=== PATIENT | male | born 1945 | race African-American/Black ===

== ENCOUNTER 2016-08-28 08:56 | Observation (INO) | payer MEDICARE ==
[~2016-08-28] VITALS: Ht 177.8 cm; Wt 84.0 kg
[~2016-08-28 08:56] MED LIST: ALLO100T PO; ATOR20TA42 PO; BACT800T5 PO; ETOD400T PO; LEVA500T PO; PRIN20TA2 PO; VITA20002 PO
[2016-08-28 09:00] VITALS: BP 162/81; PULSE 62; RESP 18; TEMP 98.2; O2SAT 99
[2016-08-28] MEDS ORDERED: ATOR20TA15 PO (09:10)
[2016-08-28] MEDS ORDERED: LISI-515 PO (09:10)
[2016-08-28] MEDS ORDERED: AMLO5TAB2 PO (09:10)
[2016-08-28] MEDS ORDERED: ALLO100T PO (09:10)
[2016-08-28] MEDS ORDERED: TAMS0.4C4 PO (09:10)
[2016-08-28 09:13] VITALS: O2SAT 98
[2016-08-28] MEDS ORDERED: SODIUM CHLORIDE 0.9% FLUSH 10 ML FLUSH IVF PRN (09:15)
[2016-08-28 09:17] VITALS: BP 158/80; PULSE 58
--- NOTE | 2016-08-28 09:21 | PD ---
HPI Chief Complaint: Chest Pain Time Seen by Provider: 09:03 Travel History International Travel<30 days: No Contact w/Intl Traveler<30days: No Traveled to known affect area: No History of Present Illness HPI 71-year-old man presents emergency department complaining of pressure-like chest pain on the right side of his chest intermittently for the past 3 days. His last about 30 minutes, 2-3 times per day, for the past 3-4 days. It happened someways cleaning his house but was not happening particularly with exertion. He has not noticed any clear aggravating or alleviating factors. Is not noticed any change with food. He otherwise had been feeling generally well and healthy. His a history of BPH, CAD, hypertension, hyperlipidemia. No history of heart problems. He went to his primary care doctor's office today for this chest pain and was sent to the emergency department. History Past Medical History Narrative Medical BPH Chronic kidney disease Hypertension hyperlipidemia Past Surgical History Surgical History: No Previous Surgery Social History Alcohol Use: Yes (SOCIALLY) Tobacco Use: No Allergies-Medications (Allergen,Severity, Reaction): Coded Allergies: No Known Allergies (Verified , 08/28/16) Reported Meds & Prescriptions Reported Meds & Active Scripts Active Reported Tamsulosin (Tamsulosin HCl) 0.4 Mg Cap 0.4 Mg PO HS Atorvastatin (Atorvastatin Calcium) 20 Mg Tab 20 Mg PO HS Amlodipine (Amlodipine Besylate) 5 Mg Tab 5 Mg PO DAILY Allopurinol 100 Mg Tab 100 Mg PO BID Lisinopril 20 Mg Tab 20 Mg PO DAILY Review of Systems Except as stated in HPI: all other systems reviewed are Neg Physical Exam Narrative GENERAL: Well-appearing 71-year-old man, no acute distress. SKIN: Focused skin assessment warm/dry. HEAD: Atraumatic. Normocephalic. EYES: Pupils equal and round. No scleral icterus. No injection or drainage. ENT: No nasal bleeding or discharge. Mucous membranes pink and moist. NECK: Trachea midline. No JVD. CARDIOVASCULAR: Regular rate and rhythm. No murmur appreciated. Peripheral pulses symmetric and equal. RESPIRATORY: No accessory muscle use. Clear to auscultation. Breath sounds equal bilaterally. GASTROINTESTINAL: Abdomen soft, non-tender, nondistended. Hepatic and splenic margins not palpable. MUSCULOSKELETAL: No obvious deformities. No clubbing. No cyanosis. No edema. NEUROLOGICAL: Awake and alert. No obvious cranial nerve deficits. Motor grossly within normal limits. Normal speech. PSYCHIATRIC: Appropriate mood and affect; insight and judgment normal. Data Data Last Documented VS Vital Signs Date Time Temp Pulse Resp B/P Pulse Ox O2 Delivery O2 Flow Rate FiO2 08/28/16 09:17 58 158/80 08/28/16 09:13 98 Nasal Cannula 2 08/28/16 09:10 18 08/28/16 09:00 98.2 Orders Electrocardiogram (08/28/16 ) Complete Blood Count With Diff (08/28/16 09:10) Comprehensive Metabolic Panel (08/28/16 09:10) Magnesium (Mg) (08/28/16 09:10) Prothrombin Time / Inr (Pt) (08/28/16 09:10) Act Partial Throm Time (Ptt) (08/28/16 09:10) Troponin I (08/28/16 09:10) Chest, Single Ap (08/28/16 09:10) Ecg Monitoring (08/28/16 09:10) Bilateral Bp Monitoring (08/28/16 09:10) Iv Access Insert/Monitor (08/28/16 09:10) Oximetry (08/28/16 09:10) Oxygen Administration (08/28/16 09:10) Sodium Chloride 0.9% Flush (Ns Flush) (08/28/16 09:15) Nitroglycerin 2% Oint (Nitroglycerin 2% (08/28/16 09:30) Labs Laboratory Tests Test 08/28/16 09:15 White Blood Count 6.2 TH/MM3 Red Blood Count 4.18 MIL/MM3 Hemoglobin 13.8 GM/DL Hematocrit 40.3 % Mean Corpuscular Volume 96.3 FL Mean Corpuscular Hemoglobin 32.9 PG Mean Corpuscular Hemoglobin 34.2 % Concent Red Cell Distribution Width 14.2 % Platelet Count 209 TH/MM3 Mean Platelet Volume 7.7 FL Neutrophils (%) (Auto) 54.6 % Lymphocytes (%) (Auto) 34.3 % Monocytes (%) (Auto) 6.5 % Eosinophils (%) (Auto) 4.0 % Basophils (%) (Auto) 0.6 % Neutrophils # (Auto) 3.4 TH/MM3 Lymphocytes # (Auto) 2.1 TH/MM3 Monocytes # (Auto) 0.4 TH/MM3 Eosinophils # (Auto) 0.2 TH/MM3 Basophils # (Auto) 0.0 TH/MM3 CBC Comment DIFF FINAL Differential Comment Prothrombin Time 11.5 SEC Prothromb Time International 1.0 RATIO Ratio Activated Partial 27.0 SEC Thromboplast Time Sodium Level 141 MEQ/L Potassium Level 4.1 MEQ/L Chloride Level 107 MEQ/L Carbon Dioxide Level 26.9 MEQ/L Anion Gap 7 MEQ/L Blood Urea Nitrogen 20 MG/DL Creatinine 1.79 MG/DL Estimat Glomerular Filtration 45 ML/MIN Rate Random Glucose 102 MG/DL Calcium Level 8.9 MG/DL Magnesium Level 2.2 MG/DL Total Bilirubin 0.6 MG/DL Aspartate Amino Transf 33 U/L (AST/SGOT) Alanine Aminotransferase 46 U/L (ALT/SGPT) Alkaline Phosphatase 55 U/L Troponin I LESS THAN 0.02 NG/ML Total Protein 7.5 GM/DL Albumin 3.6 GM/DL [facility] Medical Decision Making Medical Screen Exam Complete: Yes Emergency Medical Condition: Yes Interpretation(s) My review of EKG: Normal sinus rhythm at a rate of 63, leftward axis, possible LVH, no definite evidence of acute ischemia. LABS: CBC unremarkable CMP unremarkable, mildly elevated BUN and creatinine Troponin negative Coags unremarkable Chest x-ray: No acute disease. Differential Diagnosis ACS, hepatobiliary disease, PE, dissection, chest wall pain, other Narrative Course Medical decision making 71-year-old man presents to the emergency department with pressure-like intermittent chest pain on the right eye concerning for myocardial ischemia. Initial EKG is not diagnostic. We'll check an initial set a labs, x-ray, likely admission to chest pain Center. Diagnosis Primary Impression: Chest pain Geoffrey Dye MD Aug 28, 2016 09:20
[2016-08-28] MEDS ORDERED: NITROGLYCERIN 2% OINT 1 GM PACKET TOPICAL ONE (09:30)
[2016-08-28 09:49] LABS: AUTOMATED NEUTROPHIL # 3.4 TH/MM3 (1.8-7.7); BASOPHIL % 0.6 % (0.0-2.0); EOSINOPHIL # 0.2 TH/MM3 (0-0.4); HEMATOCRIT 40.3 % (39.0-51.0); HEMO FLAGS DIFF FINAL; LYMPH % 34.3 % (9.0-44.0); LYMPHOCYTE # 2.1 TH/MM3 (1.0-4.8); MEAN CELL VOLUME 96.3 FL (80.0-100.0); MEAN CORPUSCULAR HEMOGLOBIN 32.9 PG (27.0-34.0); MEAN CORPUSCULAR HGB CONC 34.2 % (32.0-36.0); MONO % 6.5 % (0.0-8.0); NEUT % 54.6 % (16.0-70.0); PLATELET COUNT 209 TH/MM3 (150-450); RED BLOOD COUNT 4.18 MIL/MM3 (4.50-5.90); RED CELL DISTRIBUTION WIDTH 14.2 % (11.6-17.2); WHITE BLOOD COUNT 6.2 TH/MM3 (4.0-11.0)
[2016-08-28 09:58] LABS: PROTHROMBIN TIME - PATIENT 11.5 SEC (9.8-11.6)
[2016-08-28 10:13] LABS: ANION GAP 7 MEQ/L (5-15); AST (GOT) 33 U/L (15-37); BICARBONATE 26.9 MEQ/L (21.0-32.0); BLOOD UREA NITROGEN 20 MG/DL (7-18); CHLORIDE 107 MEQ/L (98-107); GLOMERULAR FILTRATION RATE 45 ML/MIN (>89); MAGNESIUM 2.2 MG/DL (1.5-2.5); POTASSIUM 4.1 MEQ/L (3.5-5.1); SODIUM (NA) 141 MEQ/L (136-145)
[2016-08-28 10:18] LABS: ALKALINE PHOSPHATASE 55 U/L (45-117); ALT (GPT) 46 U/L (12-78); TOTAL BILIRUBIN ADULT 0.6 MG/DL (0.2-1.0)
--- NOTE | 2016-08-28 10:26 | RADRPT ---
EXAM DATE/TIME: 08/28/2016 09:21 [facility] COMPARISON: No previous studies available for comparison. INDICATIONS : Chest pain. MEDICAL HISTORY : Hypertension. SURGICAL HISTORY : None. ENCOUNTER: Initial ACUITY: 3 days PAIN SCORE: 8/10 LOCATION: Right chest FINDINGS: A single view of the chest demonstrates the lungs to be symmetrically aerated without evidence of mas s, infiltrate or effusion. The cardiomediastinal contours are unremarkable. Osseous structures are intact. CONCLUSION: No acute disease. Casimiro Weber MD on August 28, 2016 at 10:24 Board Certified Radiologist. This report was verified electronically.
[2016-08-28 11:01] VITALS: BP 132/76; PULSE 56; RESP 18; O2SAT 98
[2016-08-28] MEDS ORDERED: NITROGLYCERIN 0.4 MG SL 25 TABS/BTL SL PRN (11:15)
[2016-08-28] MEDS ORDERED: ACETAMINOPHEN 500 MG CPLT PO PRN (11:15)
[2016-08-28] MEDS ORDERED: ONDANSETRON HCL 4 MG/2 ML VIAL IV PRN (11:15)
[2016-08-28] MEDS ORDERED: SODIUM CHLORIDE 0.9% FLUSH 10 ML FLUSH IV FLUSH PRN (11:15)
--- NOTE | 2016-08-28 11:52 | HHI.HP ---
HPI Primary Care Physician Marvin Clark Chief Complaint Chest pain History of Present Illness 71-year-old male with known hypertension and hyperlipidemia presents to the emergency room for further evaluation of chest discomfort. 4 days of right anterior intermittent chest discomfort. Characterized as a "pins." No radiation. First episode occurred on Saturday when he was cleaning his house. Duration approximately 3 hours. No associated symptoms. No known precipitating or relieving factors. Saturday he was exercising and felt the discomfort "most of the day" again without radiation or associated symptoms. In fact, he said exercise improved his symptoms of pain. Saturday he still was experiencing chest discomfort and scheduled an appointment for Saturday. Today when seen by his PCP an EKG was completed and he was sent via EMS for further evaluation. He denies any past episodes of chest pain in the past. No history of coronary artery disease. Review of Systems General: No fatigue,weakness, fever, chills, or recent illness. Has been in his general state of health without complaints. In fact, he walks 5 miles daily without any chest discomfort. HEENT: No SANCHEZ, no vision changes, no nasal congestion or drainage, no dysphasia CV: As stated above. No current chest pain. No chest pressure, palpitations, intermittent leg pain. Episode of dizziness Saturday during first chest pain episode and during Saturday's episode. RESP: No SOB, cough, wheeze, or recent URI. GI: No nausea, vomiting, bowel changes, diarrhea, constipation, pain, distention , melena, blood in the stool. No change in appetite, no unintentional weight gain or weight loss. : No dysuria, urgency, frequency, endorses BPH taking Flomax as prescribed. EXT: No lower leg edema, no paraesthesias MS: No discomfort, known trauma to area, change in ROM. Has not increased his activity or amount weights during exercise. NEURO: No change in memory, dizziness, difficulty with balance, LOC, motor/ sensory deficits PSYCH: No anxiety or depression SKIN: No rashes, no concerning lesions Past Family Social History Allergies: Coded Allergies: No Known Allergies (Verified , 08/28/16) Past Medical History BPH, hypertension, hyperlipidemia, chronic kidney disease Past Surgical History Right index finger amputation, ankle fracture in his 50s Reported Medications Reported Meds & Active Scripts Active Reported Tamsulosin (Tamsulosin HCl) 0.4 Mg Cap 0.4 Mg PO HS Atorvastatin (Atorvastatin Calcium) 20 Mg Tab 20 Mg PO HS Amlodipine (Amlodipine Besylate) 5 Mg Tab 5 Mg PO DAILY Allopurinol 100 Mg Tab 100 Mg PO BID Lisinopril 20 Mg Tab 20 Mg PO DAILY Active Ordered Medications Current Medications Medications (Trade) Dose Ordered Sig/Ericka Route Start Time Stop Time Status Last Admin (NS Flush) 2 ml UNSCH PRN IVF 08/28/16 09:15 (NS Flush) 2 ml UNSCH PRN IV FLUSH 08/28/16 11:15 (NS Flush) 2 ml BID IV FLUSH 08/28/16 21:00 (Tylenol) 500 mg Q4H PRN PO 08/28/16 11:15 (Zofran Inj) 4 mg Q6H PRN IV 08/28/16 11:15 (Nitrostat Sl) 0.4 mg Q5M PRN SL 08/28/16 11:15 (Aspirin) 325 mg DAILY PO 08/29/16 09:00 Family History Noncontributory for any early onset cardiovascular disease in parent's. One sibling (brother) cardiac stent placed in his 50s. Sister coronary artery disease in her 80s. Other siblings without early onset cardiovascular disease. Social History Known hypertension and hyperlipidemia-on medication. No known diabetes. Remote smoker, smokes in his early 20s for a couple of years. Endorses glass of red wine in evening. Denies any illegal drug use. Activewalks 5 miles daily, performs situps, pushups, and using dumbbells daily. Past cardiac testing Exercise stress test "many years ago while living in [place]." Never required a cardiac catheterization. Physical Exam Vital Signs Vital Signs Date Time Temp Pulse Resp B/P Pulse Ox O2 Delivery O2 Flow Rate FiO2 08/28/16 11:01 56 18 132/76 98 Nasal Cannula 2 08/28/16 09:17 58 158/80 08/28/16 09:13 98 Nasal Cannula 2 08/28/16 09:13 97 08/28/16 09:10 58 18 98 Room Air 08/28/16 09:00 98.2 62 18 162/81 99 Physical Exam GENERAL: Alert WN, WD, NAD, pleasant, Shanel male who appears younger than stated age HEAD: NC, AT EYES: Sclera clear, conjunctiva without injection, pupils equal and round ENT: Mucous membranes pink and moist NECK: Supple, no masses, trachea midline CV: RRR, without murmur, rub, gallop, no JVD, S1-S2 no S3-S4. No carotid bruits. Chest discomfort not reproducible with palpation. RESP: Clear lungs throughout bilateral, no crackles, wheeze, rhonchi, symmetrical chest rise, nonlabored, able to speak in full sentences ABD: Soft, NT, ND, no masses, positive bowel tones EXT: Pulses +24, no dependent edema MS: Normal tone 4 extremities, nontender, no obvious deformities, full range of motion NEURO: CN II through CN XII grossly intact, motor strength 5/5, gait WNL PSYCH: A+O 3, pleasant affect, appropriate speech, appropriate mood and affect , insight and judgment SKIN: Normal turgor, normal texture, no lesions, no rashes, brisk cap refill, even hair distribution Laboratory Laboratory Tests Test 08/28/16 09:15 White Blood Count 6.2 Red Blood Count 4.18 Hemoglobin 13.8 Hematocrit 40.3 Mean Corpuscular Volume 96.3 Mean Corpuscular Hemoglobin 32.9 Mean Corpuscular Hemoglobin 34.2 Concent Red Cell Distribution Width 14.2 Platelet Count 209 Mean Platelet Volume 7.7 Neutrophils (%) (Auto) 54.6 Lymphocytes (%) (Auto) 34.3 Monocytes (%) (Auto) 6.5 Eosinophils (%) (Auto) 4.0 Basophils (%) (Auto) 0.6 Neutrophils # (Auto) 3.4 Lymphocytes # (Auto) 2.1 Monocytes # (Auto) 0.4 Eosinophils # (Auto) 0.2 Basophils # (Auto) 0.0 CBC Comment DIFF FINAL Differential Comment Prothrombin Time 11.5 Prothromb Time International 1.0 Ratio Activated Partial 27.0 Thromboplast Time Sodium Level 141 Potassium Level 4.1 Chloride Level 107 Carbon Dioxide Level 26.9 Anion Gap 7 Blood Urea Nitrogen 20 Creatinine 1.79 Estimat Glomerular Filtration 45 Rate Random Glucose 102 Calcium Level 8.9 Magnesium Level 2.2 Total Bilirubin 0.6 Aspartate Amino Transf 33 (AST/SGOT) Alanine Aminotransferase 46 (ALT/SGPT) Alkaline Phosphatase 55 Troponin I LESS THAN 0.02 Total Protein 7.5 Albumin 3.6 Result Diagram: 08/28/1691408/28/1615 Imaging Last Impressions Chest X-Ray 08/28/16 0910 Signed Impressions: Service Date/Time: Sunday, August 28, 2016 09:21 - CONCLUSION: No acute disease. Casimiro Weber MD Course EKG First EKG normal sinus rhythm, no ST or T-segment changes, and the left axis deviation Assessment and Plan Assessment and Plan #1 Chest painadmitted to chest pain center. Seen and evaluated by Dr. Veronica Winkler. Will complete 2 sets of EKGs and cardiac enzymes. After being ruled out with 2 sets of cardiac enzymes, will complete an exercise stress test. Patient is agreeable to this plan of care. Atypical chest pain most likely musculoskeletal. Will discharge later this afternoon if exercise stress test unremarkable. #2 Hypertensioncontinue lisinopril #3 Hyperlipidemiacontinue atorvastatin #4 CKDfollow with primary physician and to probably just as previously instructed #5 BPHcontinue tamsulosin Ashley Whitfield Aug 28, 2016 11:52
[2016-08-28 13:19] LABS: CREATINE KINASE 690 U/L (39-308)
[2016-08-28 13:26] VITALS: O2SAT 96
[2016-08-28 13:30] LABS: CKMB 4.5 NG/ML (0.5-3.6)
[2016-08-28 14:03] VITALS: PULSE 56
--- NOTE | 2016-08-28 14:39 | EKG ---
Date Performed: 08/28/2016 Time Performed: 09:04:15 PTAGE: 71 years EKG: Sinus rhythm MINIMAL VOLTAGE CRITERIA FOR LVH, CONSIDER NORMAL VARIANT BORDERLINE ECG NO SIGNIFICANT CHANGE FROM PRIOR ELECTROCARDIOGRAM. PREVIOUS TRACING : 11/23/2013 11.48 DOCTOR: Trace Porter Interpretating Date/Time 08/28/2016 14:38:16
--- NOTE | 2016-08-28 14:54 | HHI.DCPOC ---
Discharge Care Plan Diagnosis: (1) Atypical chest pain Goals to Promote Your Health * To prevent worsening of your condition and complications * To maintain your health at the optimal level Directions to Meet Your Goals Take your medications as prescribed Follow your dietary instruction Follow activity as directed Keep your appointments as scheduled Take your immunizations and boosters as scheduled If your symptoms worsen call your PCP, if no PCP go to Urgent Care Center or Emergency Room Smoking is Dangerous to Your Health. Avoid second hand smoke Call the 24-hour hour crisis hotline for domestic abuse at Ashley Whitfield Aug 28, 2016 14:53
--- NOTE | 2016-08-28 17:37 | TR ---
Date Performed: 08/28/2016 Time Performed: 14:15:30 DOCTOR: Veronica Winkler DRUG LIST: CLINICAL HISTORY: REASON FOR TEST: Chest pain REASON FOR ENDING: OBSERVATION: CONCLUSION: Williams protocol completed. Stopped sec to exceeding target heart rate and leg fatigue . Maximum GE=687 Target HR Achieved=90.0% Maximum IJ=969/100 Total Exercise Time=6:01. No reprod ches t discomfort. Rare PVC during recovery. No st t segments changes to sugg ischemia. Hypertensive bp re sponse. Recovery quick and unremarkable. COMMENTS:
[2016-08-28] MEDS ORDERED: TAMSULOSIN HCL 0.4 MG CAP PO SCH (21:00)
[2016-08-28] MEDS ORDERED: ATORVASTATIN 20 MG TAB PO SCH (21:00)
[2016-08-28] MEDS ORDERED: ALLOPURINOL 100 MG TAB PO SCH (21:00)
[2016-08-28] MEDS ORDERED: SODIUM CHLORIDE 0.9% FLUSH 10 ML FLUSH IV FLUSH SCH (21:00)
[2016-08-29] MEDS ORDERED: amLODIPine BESYLATE 5 MG TAB PO SCH (09:00)
[2016-08-29] MEDS ORDERED: LISINOPRIL 20 MG TAB PO SCH (09:00)
[2016-08-29] MEDS ORDERED: ASPIRIN 325 MG TAB PO SCH (09:00)
--- NOTE | 2016-08-29 12:54 | EKG ---
Date Performed: 08/28/2016 Time Performed: 12:44:24 PTAGE: 71 years EKG: SINUS BRADYCARDIA MINIMAL VOLTAGE CRITERIA FOR LVH, CONSIDER NORMAL VARIANT BORDERLINE ECG PREVIOUS TRACING : 08/28/2016 09.04 Since previous tracing, no significant change noted DOCTOR: Vignesh Sawant Interpretating Date/Time 08/29/2016 12:53:15
== END 2016-08-28 15:30 | disposition home or self-care (01) ==
LOC: NEPE 08:56 → NEDA 10:37 → NEPHCDU 13:02
PROVIDERS: ADMIT Internal Medicine Interventional Cardiology; ATTEND Internal Medicine Interventional Cardiology
DX: R07.89 Other chest pain (principal); I12.9 Hypertensive chronic kidney disease with stage 1 through stage 4 chronic kidney disease, or unspecified chronic kidney disease; N18.9 Chronic kidney disease, unspecified; E78.5 Hyperlipidemia, unspecified; N40.0 Benign prostatic hyperplasia without lower urinary tract symptoms; Z89.021 Acquired absence of right finger(s); Z87.891 Personal history of nicotine dependence
CPT/HCPCS: 71010; 80053; 82550; 82552; 83735; 84484; 85025; 85610; 85730; 93005; 93017; 99285; G0378